=== PATIENT | female | born 1950 | race Caucasian/White ===

== ENCOUNTER 2023-01-31 13:30 | Outpatient (CLI) | payer MEDICARE, BC ==
--- NOTE | 2023-02-01 12:02 | Mammography Report ---
BILATERAL DIGITAL SCREENING MAMMOGRAM 3D/2D: 01/31/2023 CLINICAL: Routine screening. Comparison is made to exams dated: 08/30/2016 mammogram and 08/05/2014 mammogram - [facility]. Both breasts are heterogeneously dense, which may obscure small masses (category c / 51-75% glandular tissue). No significant masses, calcifications, or other findings are seen in either breast. There has been no significant interval change. IMPRESSION: NEGATIVE There is no mammographic evidence of malignancy. A 1 year screening mammogram is recommended. Based on the Tyrer Cuzick model (a risk assessment model) the patients lifetime risk is 13.3% and he r 10 year risk is 8.5%. According to the ACR, ACS, and NCCN guidelines, an annual breast MRI exam george ng with mammogram is recommended if the patients lifetime risk is 20% or greater. This exam was interpreted at Station ID: [id number]. NOTE: For mammograms, a report in lay terms will be sent to the patient. Approximately 15% of breast malignancies will not be visualized mammographically. In the management of a palpable breast mass, a negative mammogram must not discourage biopsy of a clinically suspicious lesion. Electronically Signed By: Coreen aggarwal/[email or web address]:01/31/2023 16:13:19 letter sent: No_Letter ACR BI-RADS Category 1: Negative 3341F PARENCHYMAL PATTERN: (D) - The breast(s) demonstrate(s) heterogeneously dense fibroglandular mychal juarez. BI-RADS CATEGORY: (1) - 1 Mammogram [id number] 1 year screening LATERALITY: (B)
== END 2023-01-31 13:31 | disposition home or self-care (01) ==
LOC: DI 13:30
PROVIDERS: ATTEND Nurse Practitioner Family
DX: Z12.31 Encounter for screening mammogram for malignant neoplasm of breast (principal)

== ENCOUNTER 2023-01-31 13:31 | Outpatient (CLI) | payer MEDICARE, BC ==
--- NOTE | 2023-01-31 17:55 | DEXA Report ---
PROCEDURE: Dexa Spine and/or Hip INDICATIONS: POST MENOPAUSAL TECHNIQUE: Dual energy x-ray absorptiometry (DXA) was performed on a [employer] System. Regions measur ed are the AP Spine, femoral neck, and if needed forearm. COMPARISON: None FINDINGS: Lumbar Spine: Bone Mineral Density 0.709 g/cm/cm,T score -3.9. Left Femoral Neck: Bone Mineral Density 0.639 g/cm/cm, T score -2.9. Left Hip: Bone Mineral Density 0.659 g/cm/cm,T score -2.8. (T score greater or equal to -1.0: NORMAL) (T score from -1.1 to -2.4: OSTEOPENIA) (T score less than or equal to -2.5 to: OSTEOPOROSIS) Impression: By WHO criteria, this patient has osteoporosis. Patients with diagnosis of osteoporosis or osteopenia should have regular bone mineral density assess ment. For those eligible for Medicare, routine testing is allowed once every 2 years. Testing frequ ency can be increased for patients who have rapidly progressing disease or for those who are receivin g medical therapy to restore bone mass. Reviewed by: Michael Sherman MD on 01/31/2023 5:54 PM PDT Approved by: Michael Sherman MD on 01/31/2023 5:54 PM PDT Station ID: [id number]
== END 2023-01-31 13:32 | disposition home or self-care (01) ==
LOC: DI 13:31
PROVIDERS: ATTEND Nurse Practitioner Family
DX: M81.0 Age-related osteoporosis without current pathological fracture (principal); Z78.0 Asymptomatic menopausal state

== ENCOUNTER 2023-08-29 08:42 | Outpatient (CLI) | payer MEDICARE, BC ==
[2023-08-29 15:24] LABS: EOSINOPHILS # (AUTO) 0.1 10^3/uL (0.0-0.7); EOSINOPHILS % (AUTO) 1.5 %; HCT - HEMATOCRIT 38.4 % (37.0-47.0); HGB - HEMOGLOBIN 12.4 g/dL (12.0-16.0); LYMPHOCYTES # (AUTO) 1.5 10^3/uL (1.5-3.5); LYMPHOCYTES % (AUTO) 38.5 %; MEAN CORPUSCULAR HEMOGLOBIN 30.8 pg (27.0-31.0); MEAN CORPUSCULAR HGB CONC 32.3 g/dL (32.0-36.0); MEAN CORPUSCULAR VOLUME 95.3 fL (81.0-99.0); MEAN PLATELET VOLUME 10.4 fL (7.9-10.8); MONOCYTES # (AUTO) 0.3 10^3/uL (0.0-1.0); MONOCYTES % (AUTO) 8.4 %; NEUTROPHILS % (AUTO) 50.6 %; PLT - PLATELET COUNT 194 10^3/uL (130-450); RED BLOOD COUNT 4.03 10^6/uL (4.20-5.40); RED CELL DISTRIBUTION WIDTH 12.6 % (12.0-15.0); WHITE BLOOD COUNT 3.9 x10^3/uL (4.8-10.8)
[2023-08-29 15:50] LABS: % IRON SATURATION 36 % (20-50); ALBUMIN 4.2 g/dL (3.2-5.5); ALBUMIN/GLOBULIN RATIO 1.6 (1.0-2.2); ALKALINE PHOSPHATASE 72 IU/L (42-121); ALT ALANINE AMINOTRANSFERASE 12 IU/L (10-60); AST ASPARTATE AMINOTRANSFERASE 19 IU/L (10-42); BILIRUBIN,TOTAL 0.6 mg/dL (0.2-1.0); BUN - BLOOD UREA NITROGEN 8 mg/dL (6-20); CALCIUM 9.4 mg/dL (8.5-10.3); CARBON DIOXIDE - CO2 29 mmol/L (21-32); CHLORIDE 102 mmol/L (101-111); CHOL/HDL RATIO 4.6 (<4.4); CHOLESTEROL 297 mg/dL; CREATININE 0.6 mg/dL (0.6-1.3); GFR - MDRD 99 (>89); GLUCOSE 89 mg/dL (74-104); HDL CHOLESTEROL 65 mg/dL; IRON 113 ug/dL (50-212); LDL CHOLESTEROL,CALCULATED 210 mg/dL; LDL/HDL RATIO 3.2 (<4.4); POTASSIUM 3.7 mmol/L (3.5-4.5); SODIUM 137 mmol/L (135-145); TOTAL IRON BINDING CAPACITY 315 ug/dL (250-450); TOTAL PROTEIN 6.9 g/dL (6.4-8.9); TRANSFERRIN 225 mg/dL (203-362); TRIGLYCERIDES 112 mg/dL (48-352); VLDL CHOLESTEROL 22 mg/dL
[2023-08-29 15:59] LABS: THYROID STIMULATING HORMONE 5.22 uIU/mL (0.34-5.60)
[2023-08-29 16:07] LABS: FERRITIN 42.5 ng/mL (11.0-306.8)
[2023-08-29 21:13] LABS: ESTIMATED AVERAGE GLUCOSE 100 mg/dL (70-100); HEMOGLOBIN A1c% 5.1 % (4.27-6.07)
[2023-08-30 04:09] LABS: VITAMIN D 25-HYDROXY 46.9 ng/mL (30.0-100.0)
[2023-08-30 07:09] LABS: ESTRADIOL 7.1 pg/mL (0.0-54.7); THYROID PEROXIDASE (TPO) AB <9 IU/mL (0-34)
[2023-08-30 18:08] LABS: FREE TESTOSTERONE(DIRECT) 2.7 pg/mL (0.0-4.2); TESTOSTERONE 18 ng/dL (3-67)
[2023-08-30 22:07] LABS: THYROGLOBULIN ANTIBODY <1.0 IU/mL (0.0-0.9)
== END 2023-08-29 08:43 | disposition home or self-care (01) ==
LOC: LAB.S 08:42
PROVIDERS: ATTEND Acupuncturist
DX: Z00.00 Encounter for general adult medical examination without abnormal findings (principal); M81.0 Age-related osteoporosis without current pathological fracture; E78.49 Other hyperlipidemia; E03.9 Hypothyroidism, unspecified; R79.89 Other specified abnormal findings of blood chemistry
CPT/HCPCS: 36415; 80053; 80061; 81599; 82306; 82607; 82670; 82728; 83001; 83036; 83525; 83540; 83721; 84402; 84403; 84439; 84443; 84466; 84480; 84481; 85025; 86141; 86376; 86800

== ENCOUNTER 2023-08-30 08:00 | Outpatient (CLI) | payer MEDICARE, BC | END 2023-08-30 23:59 | disposition home or self-care (01) | LOC: LAB.R 08:00 | PROVIDERS: ATTEND Acupuncturist | DX: Z00.00 Encounter for general adult medical examination without abnormal findings (principal); M81.0 Age-related osteoporosis without current pathological fracture; E78.49 Other hyperlipidemia; E03.9 Hypothyroidism, unspecified; R79.89 Other specified abnormal findings of blood chemistry | CPT/HCPCS: 81599; 82523; 82570 ==

== ENCOUNTER 2023-11-22 05:12 | Emergency (ER) | payer MEDICARE, BC ==
--- NOTE | 2023-11-22 05:39 | ED Physician Documentation ---
PD HPI DYSPNEA - Stated complaint Stated Complaint: FAST HR - Chief complaint Chief Complaint: Cardiac - History obtained from History obtained from: Patient - History of Present Illness Timing - onset: How many weeks ago (has noted occasional feeling of fast heart rate for few minutes at a time over the past 1-2 weeks, mostly at night when resting. Has not felt it during day with activity. No CP, dyspnea, lightheaded. Has felt it more and longer the past few evening. Was feeling it for past hour tonight.) Timing - onset during: Sleep, Rest. No: Light activity, Exertion Timing - duration: Minutes, Hours (the past couple of nights.) Timing - details: Abrupt onset, Still present (was feeling it up through tirage, but then has faded coming to room. Initial monitor showing apparent sinus tachy 120s.), Intermittant Inciting event(s): No: URI Worsened by: No: Exertion Associated symptoms: No: Fever, Cough Similar symptoms before: No diagnosis Review of Systems Constitutional: denies: Fever, Chills, Fatigue, Weight Loss Nose: denies: Rhinorrhea / runny nose, Congestion Throat: denies: Sore throat Respiratory: denies: Cough Musculoskeletal: denies: Extremity swelling Neurologic: denies: Near syncope PD PAST MEDICAL HISTORY - Past Medical History Past Medical History: Yes Cardiovascular: None Respiratory: None Neuro: None Endocrine/Autoimmune: None - Past Surgical History Past Surgical History: No - Present Medications Home Medications: Ambulatory Orders Medication Instructions Recorded Confirmed Metoprolol Succinate [Toprol Xl] 25 mg PO DAILY #30 tablet 11/22/23 - Allergies Allergies/Adverse Reactions: Allergies Allergy/AdvReac Type Severity Reaction Status Date / Time Penicillins Allergy Hives Verified 11/22/23 05:22 - Social History Does the pt smoke?: No Smoking Status: Never smoker Does the pt drink ETOH?: No - Immunizations Immunizations are current?: Yes PD ED PE NORMAL - Vitals Vital signs reviewed: Yes - General General: Alert and oriented X 3, No acute distress, Well developed/nourished - HEENT HEENT: Pharynx benign - Neck Neck: Supple, no meningeal sign, No adenopathy, Thyroid normal - Cardiac Cardiac: RRR, No murmur - Respiratory Respiratory: No respiratory distress, Clear bilaterally - Abdomen Abdomen: Soft, Non tender - Derm Derm: Normal color, Warm and dry - Extremities Extremities: No edema, No calf tenderness / cord - Neuro Neuro: Alert and oriented X 3, No motor deficit, Normal speech Results - Vitals Vitals: Vital Signs - 24 hr 11/22/23 11/22/23 11/22/23 05:18 06:36 08:00 Temperature 35.9 C L Heart Rate 92 69 71 Respiratory 18 18 16 Rate Blood Pressure 153/79 H 124/74 125/75 O2 Saturation 100 100 97 11/22/23 08:25 Temperature Heart Rate 76 Respiratory 16 Rate Blood Pressure 115/76 O2 Saturation 98 Oxygen O2 Source Room air - EKG (time done) 5:35 EKG releavant findings:: EKG personally interpreted by author of this note. Relevant findings are: Rate: Rate (enter#) (79) Rhythm: NSR [place]: Normal Intervals: Normal [place] QRS: Normal Ischemia: Normal ST segments, Non specific changes (t wave flattening anterolateral. No ischemic changes per se. ). No: ST elevation c/w ischemia, ST depression - Labs Labs: Laboratory Tests 11/22/23 11/22/23 11/22/23 05:40 05:40 05:40 WBC 5.1 RBC 4.44 Hgb 13.7 Hct 42.0 MCV 94.6 MCH 30.9 MCHC 32.6 RDW 12.2 Plt Count 193 MPV 10.1 Neut # (Auto) 2.9 Lymph # (Auto) 1.6 [place] # (Auto) 0.4 Eos # (Auto) 0.1 Baso # (Auto) 0.0 Absolute Nucleated RBC 0.00 Nucleated RBC % 0.0 Sodium 140 Potassium 3.6 Chloride 104 Carbon Dioxide 27 Anion Gap 9.0 BUN 10 Creatinine 0.7 Estimated GFR (MDRD) 82 L Glucose 101 Calcium 9.6 Magnesium 1.9 Total Bilirubin 0.5 AST 17 ALT 11 Alkaline Phosphatase 69 B-Natriuretic Peptide 33 Total Protein 7.0 Albumin 4.4 Globulin 2.6 Albumin/Globulin Ratio 1.7 Lipase < 10 L TSH 6.97 H Free T4 Direct Free T3 pg/mL T3 Uptake 11/22/23 05:40 WBC RBC Hgb Hct MCV MCH MCHC RDW Plt Count MPV Neut # (Auto) Lymph # (Auto) [place] # (Auto) Eos # (Auto) Baso # (Auto) Absolute Nucleated RBC Nucleated RBC % Sodium Potassium Chloride Carbon Dioxide Anion Gap BUN Creatinine Estimated GFR (MDRD) Glucose Calcium Magnesium Total Bilirubin AST ALT Alkaline Phosphatase B-Natriuretic Peptide Total Protein Albumin Globulin Albumin/Globulin Ratio Lipase TSH Free T4 Direct 0.65 Free T3 pg/mL 3.43 T3 Uptake 42 - Rads (name of study) chest xray Relevant Findings:: Prelim report reviewed, EMP independent interpretation of test (normal heart size. No edema, effusions, nor infiltrates. ) PD Medical Decision Making - ED course Complexity details: reviewed results (basic labs of CBC, lytes, renal function and glucose are normal. TSH somewhat elevated and I added orders for T3/T4. ), re-evaluated patient, considered differential (description of symptoms could be frequent PVCs, SVT though less likely to be that recurrent, PAT or most likely intermittent atrial fib. Treatments and further eval would vary based on rhythm type, so getting sample of it is needed. Has some PVCs here but not the symptoms she had had. ), d/w patient Reviewed Lab Results: SOme PVCs here but not the symptoms she had had. Will need to have Ziopatch/Holter type testing to evaluate the heart pattern. Does not have sings of failure and has not had pain, dyspnea, nor near syncope, so I feel outpt eval is safe. Hopefully her PCP/clinic can set her up with heart monitor timely, without having to go through longer time of needing office apt/etc prior to ordering it. Outpt heart monitors can be done through [employer], I just can't order one through the ER. Departure - Departure Disposition: 01 Home, Self Care Clinical Impression: Irregular heart rhythm Condition: Stable Record reviewed to determine appropriate education?: Yes Follow-Up: Mana Powell ND [Primary Care Provider] - Prescriptions: Metoprolol Succinate [Toprol Xl] 25 mg PO DAILY #30 tablet Comments: Call Dr. Bro's office and let them know of your symptoms and that you are here in the ER. My suggestion is for you to have a wearable heart monitor (various names such as Holter or Zio patch). This would help define what type of abnormal rhythm or rate you are having and would better direct or guide treatments. A common treatment for the possibilities which would include frequent PVCs, atrial tachycardia, SVT, atrial fibrillation, would be use of the beta-bashir or calcium bashir type medicine. I wrote a prescription for a beta-bashir called metoprolol which tries to regulate the heart from going too fast. It will have an effect on your blood pressure to so if you were to use it you would want to with hold or take a half dose if you are feeling lightheaded as well. While you are wearing the heart monitor, would actually like to have the best chance of seeing the irregularity so you would not want to use the metoprolol during the time of wearing the heart monitor. Otherwise so you could use it to reduce your symptoms and the irregularity and hopefully even prevent it while the workup is undergoing. So for example, you could use the metoprolol for a few days or such if there is going to be a time span before they set you up with a heart monitor. You could also use it after the monitor before while awaiting the results etc. Stay well-hydrated otherwise. Your blood tests here were showing normal electrolytes and blood sugar And blood count. Your thyroid screen called the TSH was just slightly above normal. I added on the next level of tests called the T3 and T4 which are the actual hormones in your bloodstream to see if they are in the correct level. These will result later or tomorrow. Have your primary care follow-up on these results. Forms: PCP List Discharge Date/Time: 11/22/23 08:25
[2023-11-22 06:11] LABS: BASOPHILS % (AUTO) 0.8 %; EOSINOPHILS # (AUTO) 0.1 10^3/uL (0.0-0.7); HGB - HEMOGLOBIN 13.7 g/dL (12.0-16.0); LYMPHOCYTES # (AUTO) 1.6 10^3/uL (1.5-3.5); LYMPHOCYTES % (AUTO) 32.4 %; MEAN CORPUSCULAR HEMOGLOBIN 30.9 pg (27.0-31.0); MEAN CORPUSCULAR HGB CONC 32.6 g/dL (32.0-36.0); MEAN CORPUSCULAR VOLUME 94.6 fL (81.0-99.0); MEAN PLATELET VOLUME 10.1 fL (7.9-10.8); MONOCYTES # (AUTO) 0.4 10^3/uL (0.0-1.0); MONOCYTES % (AUTO) 8.3 %; NEUTROPHILS # (AUTO) 2.9 10^3/uL (1.5-6.6); NEUTROPHILS % (AUTO) 57.3 %; PLT - PLATELET COUNT 193 10^3/uL (130-450); RED BLOOD COUNT 4.44 10^6/uL (4.20-5.40); RED CELL DISTRIBUTION WIDTH 12.2 % (12.0-15.0); WHITE BLOOD COUNT 5.1 x10^3/uL (4.8-10.8)
[2023-11-22 06:55] LABS: THYROID STIMULATING HORMONE 6.97 uIU/mL (0.34-5.60)
[2023-11-22 07:00] LABS: MAGNESIUM 1.9 mg/dL (1.7-2.3)
[2023-11-22 07:06] LABS: ALBUMIN 4.4 g/dL (3.2-5.5); ALBUMIN/GLOBULIN RATIO 1.7 (1.0-2.2); ALKALINE PHOSPHATASE 69 IU/L (42-121); ALT ALANINE AMINOTRANSFERASE 11 IU/L (10-60); AST ASPARTATE AMINOTRANSFERASE 17 IU/L (10-42); BILIRUBIN,TOTAL 0.5 mg/dL (0.2-1.0); BUN - BLOOD UREA NITROGEN 10 mg/dL (6-20); CALCIUM 9.6 mg/dL (8.5-10.3); CARBON DIOXIDE - CO2 27 mmol/L (21-32); CHLORIDE 104 mmol/L (101-111); CREATININE 0.7 mg/dL (0.6-1.3); GFR - MDRD 82 (>89); GLUCOSE 101 mg/dL (74-104); LIPASE < 10 U/L (11-82); POTASSIUM 3.6 mmol/L (3.5-4.5); SODIUM 140 mmol/L (135-145)
--- NOTE | 2023-11-22 07:50 | XRAY Report ---
PROCEDURE: Chest 1V INDICATIONS: palpitations/irreg heart rate TECHNIQUE: One view of the chest was acquired. COMPARISON: None. FINDINGS: Surgical changes and devices: None. Lungs and pleura: No dense consolidation or pleural effusion. Possible mild bronchial thickening. Mediastinum: Normal heart size Bones and chest wall: No suspicious bony lesions. Overlying soft tissues appear unremarkable. IMPRESSION: No acute abnormality on this limited single view radiograph. Possible mild bronchial wall thickening may represent viral infection/bronchitis. Reviewed by: Russell Schneider MD on 11/22/2023 7:49 AM PDT Approved by: Russell Schneider MD on 11/22/2023 7:49 AM PDT Station ID: [id number]
[2023-11-22 08:29] VITALS: BP 115/76; O2SAT 98
== END 2023-11-22 08:25 | disposition home or self-care (01) ==
LOC: ED 05:12
DX: I49.9 Cardiac arrhythmia, unspecified (principal)
CPT/HCPCS: 36415; 80053; 83690; 83735; 83880; 84439; 84443; 84479; 84481; 85025; 93005; 99284

== ENCOUNTER 2023-11-22 23:51 | Emergency (ER) | payer MEDICARE, BC ==
--- NOTE | 2023-11-23 00:20 | ED Physician Documentation ---
History of Present Illness - Stated complaint Stated Complaint: HEART RACING - Chief complaint Chief Complaint: Cardiac - History obtained from History obtained from: Patient - Additonal information Additional information: 73yF who was just seen here earlier today for palpitations, found to have PVCs but otherwise negative workup, p/w same tonight and inability to sleep. denies cp, soa, dizziness, nausea, fever, fnd. She was prescribed metoprolol but doesn't want to take it since she doesn't like medications. 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 PD PAST MEDICAL HISTORY - Past Medical History Past Medical History: Yes Cardiovascular: None Respiratory: None Neuro: None Endocrine/Autoimmune: None - Past Surgical History Past Surgical History: No - Present Medications Home Medications: Ambulatory Orders Medication Instructions Recorded Confirmed Metoprolol Succinate [Toprol Xl] 25 mg PO DAILY #30 tablet 11/22/23 11/23/23 - Allergies Allergies/Adverse Reactions: Allergies Allergy/AdvReac Type Severity Reaction Status Date / Time Penicillins Allergy Hives Verified 11/23/23 00:12 - Social History Does the pt smoke?: No Smoking Status: Never smoker Does the pt drink ETOH?: No Does the pt have substance abuse?: No - Immunizations Immunizations are current?: Yes - POLST Patient has POLST: No PD ED PE NORMAL - Vitals Vital signs reviewed: Yes - General General: Alert and oriented X 3, No acute distress, Well developed/nourished - HEENT HEENT: Atraumatic, PERRL, EOMI, Moist mucous membranes, Pharynx benign - Neck Neck: Supple, no meningeal sign - Cardiac Cardiac: RRR - Respiratory Respiratory: No respiratory distress, Clear bilaterally - Abdomen Abdomen: Non tender, Non distended - Derm Derm: Normal color, Warm and dry - Extremities Extremities: No deformity, No edema - Psych Psych: Normal mood, Normal affect Results - Vitals Vitals: Vital Signs - 24 hr 11/23/23 11/23/23 11/23/23 00:05 00:25 01:15 Temperature 36.2 C L Heart Rate 88 65 71 Respiratory 16 16 16 Rate Blood Pressure 143/92 H 131/69 H 128/70 O2 Saturation 99 99 100 11/23/23 01:37 Temperature 36.2 C L Heart Rate 66 Respiratory 16 Rate Blood Pressure 124/72 O2 Saturation 97 Oxygen O2 Source Room air - EKG (time done) 0014 EKG releavant findings:: EKG personally interpreted by author of this note. Relevant findings are: Rate: Rate (enter#) (77) Rhythm: NSR [place]: Normal Intervals: Normal [place] QRS: Normal Ischemia: Normal ST segments, Other (pvc noted. v3 with unusual t wave pattern and twi new from earlier today. will repeat. suspect artifact) 0029 EKG releavant findings:: EKG personally interpreted by author of this note. Relevant findings are: Rate: Rate (enter#) (69) Rhythm: NSR [place]: Normal Intervals: Normal [place] QRS: Normal Ischemia: Normal ST segments, Other (artifactual ekg abnormality in v3 has disappeared on repeat ekg. no abnormal twi) PD Medical Decision Making - ED course ED course: 73yF presents with palpitations, found to have pvcs. since she just had a full workup earlier today, shared decision was made to hold off on bloodwork. advised outpatient f/u with pcp with referral to cardiology. referral provided. return precautions given. Departure - Departure Disposition: 01 Home, Self Care Clinical Impression: Palpitations, PVC (premature ventricular contraction) Condition: Stable Instructions: Premature Ventricular Contract About Comments: You were seen in the emergency department for heart racing. You have PVCs on your EKG. Please follow-up with your primary care provider (referral provided) and return to the emergency department if you have any new or worsening symptoms or other concerns. For complementary medicine providers, check out [facility]. I recommend Beti Mathur LMT, PEÑA for nervous system support and stress management using complementary medicine tools during this time. [email or web address] Forms: PCP List Discharge Date/Time: 11/23/23 01:38
[2023-11-23 01:40] VITALS: BP 124/72; O2SAT 97
== END 2023-11-23 01:38 | disposition home or self-care (01) ==
LOC: ED 23:51
DX: R00.2 Palpitations (principal); I49.3 Ventricular premature depolarization
CPT/HCPCS: 93005

== ENCOUNTER 2024-03-27 11:11 | Outpatient (CLI) | payer MEDICARE, BC | END 2024-03-27 11:12 | disposition home or self-care (01) | LOC: LAB.S 11:11 | PROVIDERS: ATTEND Physician Assistant | DX: E03.9 Hypothyroidism, unspecified (principal); Z79.890 Hormone replacement therapy ==

== ENCOUNTER 2024-05-01 13:42 | Outpatient (CLI) | payer MEDICARE, BC ==
--- NOTE | 2024-05-01 14:11 | Sleep Patient Instructions ---
Sleep Center Visit Summary - Patient Visit Information Reason for Visit: Initial consult for evaluation of sleep disordered breathing and other sleep issues. - Patient Instructions Instructions Attached: Sleep Study Additional Instructions: You will be completing a sleep study, either an in-lab polysomnography (PSG) or home sleep study (HST). You will follow-up in the sleep care office after the sleep study is completed to hear the results and talk about therapy, if needed. You will be called by our office staff to schedule this appointment, but you may contact us with any questions. - Clinic Information Contact: [facility] [address] [place] [address] [email or web address] T: [phone]
--- NOTE | 2024-05-01 14:17 | SLEEP CARE CONSULTATION ---
Information from patient questionnaire entered by Haylee Leyva. I have reviewed and concur with the information entered by Haylee Leyva. This document represents the service I personally performed and the decisions made by me, Nicolasa Collins ARNP. History of Present Illness Service Date and Time: 05/01/2024 1342 Reason for Visit: New patient Chief Complaint: reports: Unrefreshed sleep, Fatigue, Frequent awakenings at night Date of Onset: 2+YRS Usual bedtime: 5555-6323 Time it takes to fall asleep: UNSURE 10MIN Snores at night: No Observed to quit breathing while asleep: No Sleeps alone due to snoring: No Number of times waking at night: SOME NIGHTS EVERY HR OTHERS 2-3 Reasons for waking at night: reports: Bathroom, Other (UNKNOWN, ACTIVE MIND). denies: Choking, Gasping for air Toss, Turn, or Twitch while sleeping: Yes Recalls having dreams: No Usually gets out of bed at: 7325-4511 Feels refreshed in the morning: No Morning headache: No Sleepy or fatigued during the day: Yes Ever fallen asleep while driving: No (drowsy driving but no accidents) Takes day naps: Yes (almost daily; for 30-45 mins) Dreams during day naps: No Prior sleep studies: No Additional HPI information: I had the pleasure of seeing LIZ CANAS today regarding the possibility of her having a sleep disorder. Her current complaints are unrefreshed sleep, fatigue and frequent night awakenings. She says she does not feel rested in the morning. She says she gets 8-9 hours a night. She says she can wake up hourly some nights and other nights she does not wake up as often. She tries to keep to a schedule for sleep, going to bed and getting up at consistent times. She says she does occasionally wake up with things on her mind but can go back to sleep. The wake ups at night are random and for no apparent reasons. Her says she snores occasionally but has not said that she has pauses in breathing. Her also says she twitches in her sleep. She describes an uncomfortable feel ing on the bottom of her feet. She will roll her feet on a tennis ball which does reduce this feeling and calms her feet. She states that she does not remember dreaming but may dream about once a month. - Parasomnia Symptoms Ever been unable to move upon waking from sleep: No Walks in sleep: No Talks in sleep: No Ever acted out dreams in sleep: No Ever felt weak in the knees when startled or emotional: No Bothered by creepy, crawly, restless sensations in legs: No Problems with memory or concentration: Yes (not problematic, never had a good memory) Subjective Initial Kent Sleepiness Scale score: 11 (05/01/24) Past Medical History Past Medical History: reports: Other (no significant medical history) Social History The patient's occupation is a RE. Patient is and lives in [place]. Have you smoked in the past 12 months: No Alcohol use: No Caffeine use: No Family History Family history of sleep disordered breathing: No Allergies and Home Medications Known drug allergies: Yes ( LISTED) Drug allergies reviewed: Yes Home medication list reviewed: Yes (takes multiple supplements, did not bring in list) Allergy and home medication list: Allergies Penicillins Allergy (Verified 05/01/24 13:43) Hives Review of Systems Weight gain over past 5 years: 5 Cardiovascular: reports: palpitations (related to bioidentical hormones; reduced with stopping hormones). denies: high blood pressure Gastrointestinal: denies: heartburn Neurological: denies: headaches Psychiatric: reports: depression Ear/Nose/Throat: reports: wisdom teeth removed. denies: tonsillectomy (/) Immunologic: reports: allergies to food or environment Physical Exam Vital signs obtained and entered by: HAYLEE Rainey MA Blood Pressure: 126/66 (LEFT ARM) Cuff size: regular Heart Rate: 72 O2 Saturation: 98 Height: 5 ft 4 in Weight: 119 lb 3.2 oz Body Mass Index: 20.5 BMI Classification: Normal Neck circumference: 12.5 Nostrils: patent to airflow Mouth and throat: normal Soft palate: long Hard palate: normal Uvula: normal Uvula visualization: 100% Mallampati Class I Tongue: normal in size Tonsils: 1+ Neck: normal w/o lymphadenopathy or thyromegaly Heart: regular rate and rhythm Lungs: clear bilaterally Impression and Plan 1. Suspected Obstructive Sleep Apnea-Hypopnea Syndrome, as suggested by a history of irregular snoring, fatigue frequent awakening during the night, unrefreshed sleep and cognitive impairment. Narrow oropharynx and obesity are common predisposing factors for obstructive sleep apnea-hypopnea syndrome. I recommend proceeding to polysomnography to confirm the diagnosis and to assess severity. If the patient has significant sleep disordered breathing, a manual CPAP titration study will also be performed to find the optimal treatment pressure. I informed the patient of what the sleep studies involve and after some discussion, obtained agreement to proceed. The pathophysiology of obstructive sleep apnea-hypopnea syndrome was discussed with the patient and health risks of cardiovascular and cerebrovascular disease if not treated. Risks of drowsy driving discussed in detail and patient advised to avoid long distance driving and to toe puller at the first sign of drowsiness. Patient agreed to plan. * Schedule polysomnography +- manual CPAP titration study and return in 1-2 weeks after the study to discuss result and initiate therapy. * Avoid long distance driving or driving when feeling sleepy. * Avoid alcohol, sedative and muscle relaxant around bedtime. * Attempt to lose weight. * Review instructions provided by trained office staff on how to prepare for the sleep study. * Return for follow-up after sleep study completed. Plan: PSG/HST and follow up Visit Type: In Office Time Spent with Patient (minutes): 30 Provider Statement: I spent 100% of the Face to Face Visit with the patient with greater than 50% spent counseling the patient and coordination of care.
[2024-05-01 14:20] VITALS: BP 126/66; O2SAT 98
== END 2024-05-01 13:43 | disposition home or self-care (01) ==
LOC: SC 13:42
PROVIDERS: ATTEND Nurse Practitioner Family
DX: G47.8 Other sleep disorders (principal); R53.83 Other fatigue; R06.83 Snoring; R41.89 Other symptoms and signs involving cognitive functions and awareness
CPT/HCPCS: 99203; G0463; 99212

== ENCOUNTER 2024-05-06 09:18 | Outpatient (CLI) | payer MEDICARE, BC ==
[2024-05-06 10:16] LABS: THYROID STIMULATING HORMONE 5.28 uIU/mL (0.34-5.60)
== END 2024-05-06 09:19 | disposition home or self-care (01) ==
LOC: LAB 09:18
PROVIDERS: ATTEND Physician Assistant
DX: E03.9 Hypothyroidism, unspecified (principal); Z79.890 Hormone replacement therapy
CPT/HCPCS: 36415; 84144; 84439; 84443

== ENCOUNTER 2024-05-29 08:02 | Outpatient (CLI) | payer MEDICARE, BC ==
--- NOTE | 2024-05-30 12:11 | Ultrasound Report ---
PROCEDURE: Pelvic w/Transvaginal INDICATIONS: ABN PROGESTERONE. Postmenopausal TECHNIQUE: Transabdominal/transvaginal ultrasound of the pelvis was obtained. Endovaginal scanning wa s necessary due to incomplete visualization of the adnexal and endometrial structures by transabdomin al scanning. COMPARISON: None. FINDINGS: Uterine size: Uterus measures 4.6 x 2.3 x 3.4 cm, and is retroverted. Incidental cluster of focal 1 to 2 mm echogenic structure is at the cervix may reflects small glandul ar structures. Myometrium: The myometrium is homogeneous. Endometrium: The endometrium measures 6.8 mm in combined thickness. Echotexture is somewhat heteroge nous, small amount of fluid is noted in the endometrial cavity. Right ovary: Nonvisualized Left ovary : Nonvisualized Other: No pathologic free abdominal or pelvic fluid. IMPRESSION: Thickened irregular endometrium measuring up to 6.8 mm. Advise endometrial biopsy Reviewed by: Yon Prieto MD on 05/30/2024 11:09 AM NIELS Approved by: Yon Prieto MD on 05/30/2024 11:09 AM NIELS Station ID: [id number]
== END 2024-05-29 08:03 | disposition home or self-care (01) ==
LOC: DI 08:02
PROVIDERS: ATTEND Physician Assistant
DX: R94.7 Abnormal results of other endocrine function studies (principal); R93.89 Abnormal findings on diagnostic imaging of other specified body structures